=== PATIENT | female | born 1985 | race Caucasian/White ===

== ENCOUNTER 2022-09-13 21:28 | Emergency (ER) | payer MEDICAID, OTHER ==
[~2022-09-13] VITALS: Ht 172.7 cm; Wt 88.5 kg
[2022-09-13 22:04] VITALS: BP 134/86
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
[2022-09-13] MEDS ORDERED: SULF1TAB48 PO (22:23)
[2022-09-13] MEDS ORDERED: CEPH500C2 PO (22:23)
[2022-09-13] MEDS ORDERED: CEPHALEXIN MONOHYDRATE 500 MG CAPSULE PO ONE ×2 (22:27→22:30)
[2022-09-13] MEDS ORDERED: TDAP [DIPH/PERTUSSIS/TET] 0.5 ML VIAL IM ONE ×2 (22:27→22:30)
[2022-09-13] MEDS ORDERED: SULFAMETH/TRIMETH 800/160 MG 1 UDTAB TABLET ONE (22:27)
--- NOTE | 2022-09-13 22:29 | NUR ---
Patient discharged to home in stable condition. Written and verbal after care instructions given. Patient verbalizes understanding of instruction.
[2022-09-13] MEDS ORDERED: SULFAMETH/TRIMETH 800/160 MG 1 UDTAB TABLET PO ONE (22:30)
[2022-09-13] MEDS ORDERED: KETOROLAC TROMETHAMINE INJ 60 MG/2 ML VIAL IM ONE ×2 (22:58→23:00)
== END 2022-09-13 23:12 | disposition home or self-care (01) ==
LOC: ER 21:33
DX: S81.812D Laceration without foreign body, left lower leg, subsequent encounter (principal); L03.116 Cellulitis of left lower limb; F41.9 Anxiety disorder, unspecified; X58.XXXD Exposure to other specified factors, subsequent encounter
CPT/HCPCS: 99284; 96372; 90471; 90715; J1885